=== PATIENT | female | born 1990 | race Caucasian/White ===

== ENCOUNTER 2018-08-05 13:16 | Emergency (ER) | payer MEDICARE ==
[~2018-08-05] VITALS: Ht 149.9 cm; Wt 57.0 kg
[2018-08-05 13:52] VITALS: BP 102/60
== END 2018-08-05 16:21 | disposition home or self-care (01) ==
LOC: ER 13:16
DX: B00.1 Herpesviral vesicular dermatitis (principal); F14.10 Cocaine abuse, uncomplicated; F17.290 Nicotine dependence, other tobacco product, uncomplicated
CPT/HCPCS: 99283

== ENCOUNTER 2025-05-08 17:00 | Emergency (ER) | payer SELFPAY ==
[~2025-05-08] VITALS: Ht 160 cm; Wt 59.0 kg
[2025-05-08 17:03] VITALS: O2SAT 100
[2025-05-08 17:31] LABS: CLARITY URINE CLOUDY (CLEAR); COLOR URINE DARK YELLOW (YELLOW); GLUCOSE URINE NEGATIVE (NEGATIVE); KETONES URINE 1+ (NEGATIVE); LEUKOCYTE ESTERASE URINE 2+ (NEGATIVE); NITRITE URINE POSITIVE (NEGATIVE); OCCULT BLOOD URINE NEGATIVE (NEGATIVE); PH URINE 6.0 (4.5-8.0); PROTEIN URINE 2+ (NEGATIVE); SPECIFIC GRAVITY URINE 1.027 (1.005-1.030); UROBILINOGEN URINE 1.0 E.U./dL (0.2-1.0)
[2025-05-08 17:45] LABS: BACTERIA URINE 2+; RBC URINE 0-2 /hpf (0-2); SQUAMOUS EPITHELIAL CELL URINE FEW /lpf (RARE/1+)
[2025-05-08 18:01] LABS: BASOPHILS % 0.6 % (0.0-2.0); EOSINOPHILS % 1.2 % (0.0-5.0); HEMATOCRIT. 33.3 % (36.0-48.0); HEMOGLOBIN. 11.5 g/dL (12.0-16.0); LYMPHOCYTES % 23.0 % (20.0-50.0); MEAN PLATELET VOLUME 9.4 fl (7.4-10.4); MONOCYTES % 4.7 % (2.0-8.0); NEUTROPHILS % 70.5 % (40.0-76.0); PLATELET 176 x1000/uL (130-400); RED BLOOD CELL COUNT 2.91 mill/uL (4.2-5.4); RED CELL DISTRIBUTION WIDTH 20.6 % (11.6-14.6)
[2025-05-08 18:02] LABS: ADD RBC MORPHOLOGY YES
[2025-05-08 18:13] LABS: CREATININE 0.5 mg/dL (0.6-1.0); UREA NITROGEN BLOOD 7 mg/dL (9-23)
[2025-05-08 18:19] LABS: PLATELET ESTIMATE NORMAL
[2025-05-08 18:47] VITALS: TEMP 37
[2025-05-08 19:49] LABS: ASPARTATE AMINOTRANSFERASE 462 IU/L (<34); BILIRUBIN DIRECT 0.5 mg/dL (<=3.0); BILIRUBIN TOTAL 1.1 mg/dL (0.1-1.0); PROTEIN TOTAL 6.9 g/dL (6.0-8.3)
[2025-05-08] MEDS: PHENAZOPYRIDINE HCL 100MG TABLET PO ONE (20:03)
[2025-05-08] MEDS: CEFTRIAXONE SODIUM 1G VIAL IM ONE (20:03)
[2025-05-08] MEDS: LIDOCAINE HCL 1% 20ML VIAL INFIL ONE (20:04)
[2025-05-08] MEDS: MAGNESIUM/ALUMINUM HYDROXIDE/SIMETHICONE 30ML UDC PO ONE (20:04)
[2025-05-08] MEDS: ONDANSETRON 4MG ODT PO ONE (20:04)
[2025-05-08] MEDS: FAMOTIDINE 20MG TABLET PO ONE (20:04)
[2025-05-08] MEDS ORDERED: FAMO-135 MT (20:10)
[2025-05-08] MEDS ORDERED: CEPH500C2 MT (20:10)
[2025-05-08] MEDS ORDERED: PYR200 MT (20:10)
[2025-05-08 20:34] VITALS: BP 127/78; PULSE 96; RESP 18; O2SAT 100
== END 2025-05-08 20:38 | disposition home or self-care (01) ==
LOC: ER 17:00
DX: N30.00 Acute cystitis without hematuria (principal); K21.9 Gastro-esophageal reflux disease without esophagitis; F14.90 Cocaine use, unspecified, uncomplicated
CPT/HCPCS: 99284; 80076; 80048; 81003; 81025; 83690; 85025; 36415; 96372; Q0162; J0696; J2003